=== PATIENT | female | born 1940 | race Caucasian/White ===

== ENCOUNTER 2018-02-19 06:18 | Inpatient (IN) ==
[2018-02-19] MEDS ORDERED: ceFAZolin 2 GM Premix Inj 2 GM/50 ML PIGGYBACK IV.SIG SCH (07:00)
[2018-02-19] MEDS ORDERED: Chlorhexidine 4% Topical 120 APPLIC/120 ML Bottle TOPICAL SCH (07:00)
[2018-02-19] MEDS ORDERED: SODIUM CHLOR 0.9% IV.SIG SCH (07:00)
[2018-02-19] MEDS ORDERED: Vancomycin Inj 1,000 MG in Sodium Chlor 0.9% Inj 250 ML IV.SIG SCH (07:00)
[2018-02-19] MEDS ORDERED: Sodium Chlor 0.9% Inj 60 ML, Bupivacaine Liposo PF 1.3% Inj 20 ML, Bupivacaine/Epi PF 0... P-ARTICULR SCH ×3 (07:00)
[2018-02-19] MEDS ORDERED: TRANEXAMIC ACID IV.SIG SCH (07:00)
[2018-02-19] MEDS ORDERED: Metoprolol Tartrate 25 MG Tablet PO ONE (07:18)
[2018-02-19] MEDS ORDERED: Chlorhexidine Gluconate 2% 1 Pack (2 Cloths) TOPICAL ONE (07:18)
[2018-02-19] MEDS ORDERED: Sodium Chlor 0.9% Inj 500 ML IV.SIG SCH (08:00)
[2018-02-19] MEDS ORDERED: Bisacodyl 10 MG Supp RECTAL PRN (11:34)
[2018-02-19] MEDS ORDERED: Morphine Inj 4 MG/ML Vial IV.PUSH PRN (11:34)
[2018-02-19] MEDS ORDERED: Post-op Orders (for Pharmacy) OTHER STA (11:34)
--- NOTE | 2018-02-19 11:40 | P.OP ---
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 She presents for surgical treatment after having extensive conservative care NOTE: Ely Dorado PA-C was present for the entire surgical procedure as my automobile mechanic assistant. In my medical opinion her skill and care was necessary for the proper management of this patient. COMPONENTS: COMPANY: [employer] CUP: Forrest, 48 mm, sector, 2 screws STEM: [place], size 13, standard offset HEAD: Metal, 32 mm, +1, 03/08 taper LINER: Altrex, 32 mm, neutral PROCEDURE: This patient was brought to the operating room and anesthetized in the supine position. The patient was positioned on the [place] table with the operative leg extended and the contralateral leg held position. The hip and leg was scrubbed with alcohol followed by Hibiclens followed by ChloraPrep and draped sterilely in the clean air suite. Preoperative fluoroscopic images were utilized. A templating x-ray was obtained and printed to be used during the case. A timeout was done and antibiotics were given within a routine time window. A 4 inch incision was made starting 2 cm distal and 2 cm lateral to the anterior superior iliac spine. The tensor fascia lizzeth fascia was identified and opened longitudinally in line with the incision. Deep retraction allowed good visualization in the interval between the tensor fascia lizzeth and the rectus and this was opened further. The posterior fascia was opened. Crossing vessels were coagulated appropriately. The anterior aspect of the hip capsule was identified. Retractors were placed above and below the capsule. The capsule was opened longitudinally. Stay sutures were utilized creating flaps for the anterior capsule. The femoral neck was cut at the right location and completed with an oscillating saw. The head and neck was removed and taken to the back table. The leg was externally rotated 60 degrees and traction placed on the extremity. The labrum was excised. A portion of the capsule was excised. Visibility was excellent. Retractors were positioned. Starting 6 mm from the final size reamer, we began reaming up to 1 mm from the anticipated size. This was visualized under fluoroscopy. A trial cup was positioned. This also was visualized under fluoroscopy and minor adjustments were made. The final preparation with a 48 reamer was utilized. The final cup was positioned in approximately 40 degrees of abduction and 20 degrees of forward flexion. This is visualized under fluoroscopy and was seated into the final position. Position was very satisfactory. 2 screws were positioned without complication A single hole eliminator was positioned followed by the plastic liner. The final solution was excellent. Traction was let off. The leg was brought into neutral rotation. A lifting took was positioned underneath the greater trochanter and proximal femur. The leg was maximally X rotated and the foot drop to the floor across midline. Retractors were positioned. A box osteotome was used to gain entrance into the top of the femur. The canal was probed with a finder to ensure that we are within the canal. Successive broaching up to the final stem size was accomplished. Trial reduction showed excellent balancing. Adjustments were made. The wound was irrigated copiously and the canal irrigated. The final stem was inserted in proper orientation. Trial again was trialed and the final head side was impacted. The hip was reduced and with 60 degrees of external rotation the leg to be dropped to the floor without evidence of anterior subluxation. Intraoperative x-rays were obtained. Local anesthesia was utilized for a field block including posterior capsule, inferior capsule, cephalad capsule, region of the greater trochanter, tensor fascia lizzeth and subcutaneous tissue. The anterior capsule was repaired with interrupted #2 Tycron sutures. The fascia was run with 0 PDS on a loop. Subcutaneous tissue was approximated 2-0 Vicryl suture and skin with running intradermal 3-0 Vicryl followed by benzoin and Steri-Strips. A sterile dressing was applied. The patient was awakened and taken to the recovery room in satisfactory condition FINDINGS: There was severe acetabular dysplasia. Cup position was cephalad from normal with what was felt to be good bone capture and overall satisfactory position. The final solution was satisfactory. We lengthen the leg approximately 11 mm
--- NOTE | 2018-02-19 11:47 | P.DCO ---
- Physical Therapy Physical Therapy: Gait training (3x/week for 2 weeks) Hip: Total hip Right Lower Extremity Weight Bearing: Weight bearing as tolerated - Certification Need for Home Health services: I have seen patient Nalini Flores on 02/19/18. My clinical findings support the need for the requested home health care services because: Homebound Certification: I certify that my clinical findings support that this patient is homebound because:
--- NOTE | 2018-02-19 11:47 | XR ---
EXAM DATE: 02/19/2018 11:45 AM EST AGE/SEX: 77 years / Female INDICATIONS: Post-op total right hip arthroplasty. CLINICAL DATA: This is the patient's initial encounter. Patient reports that signs and symptoms have been present for 1 day and indicates a pain score of Nonresponsive. MEDICAL/SURGICAL HISTORY: Non-responsive. Non-responsive. COMPARISON: No prior exams available for comparison. FINDINGS: Total hip arthroplasty is present. The hardware appears intact. Alignment is anatomic. CONCLUSION: Satisfactory appearance of right RU Electronically signed by: Moe Amaya MD 02/19/2018 11:46 AM EST
[2018-02-19] MEDS ORDERED: *Ondansetron Inj 4 MG/2 ML Vial PERIprocedural Use ONLY ONE (12:08)
[2018-02-19] MEDS ORDERED: fentaNYL Citrate Inj 100 MCG/2 ML Ampul ONE (12:15)
[2018-02-19] MEDS ORDERED: *Promethazine Inj 25 MG/ML Vial PERIprocedural use ONLY ONE (12:20)
[2018-02-19] MEDS ORDERED: *morphine SULFATE 4 MG/ML PERIprocedure ONLY ONE (12:37)
[2018-02-19] MEDS: ceFAZolin 1 GM Premix Inj 1 GM/50 ML FROZ.PIGGY IV.SIG SCH ×2 (15:25→21:11)
[2018-02-19] MEDS ORDERED: Temazepam 15 MG Capsule PO PRN (21:00)
[2018-02-19] MEDS: Senna/Docusate Sodium 8.6/50 MG Tablet PO SCH (21:11)
[2018-02-19] MEDS: Multivitamin/Minerals Therapeutic Tablet PO SCH (21:11)
[2018-02-20] MEDS: ceFAZolin 1 GM Premix Inj 1 GM/50 ML FROZ.PIGGY IV.SIG SCH (04:09)
[2018-02-20 07:03] LABS: Hematocrit 28.9 % (35.0-46.0)
[2018-02-20] MEDS: Multivitamin/Minerals Therapeutic Tablet PO SCH (08:08)
[2018-02-20] MEDS: Senna/Docusate Sodium 8.6/50 MG Tablet PO SCH (08:08)
--- NOTE | 2018-02-20 14:26 | P.PNOP ---
Subjective Interval history: Doing fairly well. Right hip pain is well controlled. She believes she is better than prior to surgery. No radiating leg pain. No CP or abd pain. Physical Exam Vital signs: Vital Signs 02/19/18 16:00 02/19/18 19:42 02/19/18 23:53 Temperature 97.3 F L 97.9 F 97.8 F Pulse Rate 84 77 79 Respiratory Rate 18 18 22 Blood Pressure 126/67 118/55 L 116/58 L Pulse Oximetry 98 98 95 02/20/18 04:00 02/20/18 08:00 Temperature 99.1 F 98.3 F Pulse Rate 82 73 Respiratory Rate 16 17 Blood Pressure 133/61 102/53 L Pulse Oximetry 93 L 94 L Intake & Output 02/19/18 02/20/18 02/20/18 18:59 06:59 18:59 Intake Total 2456.8 / 2456.8 600 / 600 Output Total 300 / 300 Balance 2156.8 / 2156.8 600 / 600 Weight 57.9 kg 59.4 kg Intake: IV 556.8 / 556.8 100 / 100 LR 1000 mL Inj 1,000 ML @ 80 101 / 101 mls/hr IV.CONT .[id number] [facility] Rx# :[id number] Cyklokapron Inj 580 MG In NS 105.8 / 105.8 Inj 100 ML @ 200 mls/hr IV.SIG ONCE [place] Rx#:[id number] Vancomycin Inj 1,000 MG In NS 250 / 250 Inj 250 ML @ 250 mls/hr IV.SIG SOFTWARE RELEASE MANAGER [facility] Rx#:[id number] Ancef 1 GM Premix Inj 1 gm In 50 / 50 100 / 100 50 ml @ 100 mls/hr IV.SIG Q6H [place] Rx#:[id number] Ancef 2 GM Premix Inj 2 gm In 50 / 50 50 ml @ 100 mls/hr IV.SIG SOFTWARE RELEASE MANAGER [place] Rx#:[id number] Oral 500 / 500 500 / 500 Anesthesia Amount 1400 / 1400 Output: Estimated Blood Loss 300 / 300 Other: # Voids 1 5 Date of Last Bowel Movement 02/18/18 02/18/18 Narrative: Laying in bed NAD RLE Hip dressing intact, mild SS drainage middle portion dressing, no erythema , Mild swelling and warmth +motor at, +sens, +nvi Neg homans - Constitutional no acute distress Results - Labs CBC & Chem 7: 02/20/18 05:27 Laboratory Results - last 24 hr 02/20/18 05:27 Hgb 10.0 L Hct 28.9 L - Procedures Right total hip arthroplasty, direct anterior approach Assessment and Plan - Ortho Post Op Day # 1 - Assessment and Plan pod#1 s/p R RU, anterior Doing very well for pod#1. Ortho stable. Pain controlled. Ok to d/c home w [facility] after PT today. PO pain meds as needed. PT - WBAT RLE. Anterior RU precautions. Walker assist. Hold dressing changes unless saturated. ASA 81mg F/U in 2 weeks as scheduled. DME written.
--- NOTE | 2018-02-20 14:26 | P.DS ---
Date of admission: 02/19/18 06:18 Primary care physician: Dario Caraballo MD Attending physician on discharge: Adrian Robertson Anticipated date of discharge: 02/20/18 Brief History from admission: Ms. Flores has a 1 year history of increasing right hip pain. This increased May of 2017 so she sought out medical treatment. Xrays were taken showing mild to moderate arthritis. Physical therapy and diclofenac were prescribed. She was not able to do the therapy at the time but found the medicine to relieve some of her symptoms. In November she underwent intra-articular injection of the right hip. She got little relief and found her pain to accelerate. Repeat xrays were taken showing severe arthritis with collapse of the femoral head. Surgical treatment was recommended in the form of right total hip arthroplasty, direct anterior approach. She agreed and now presents for the above. DS: Diagnosis - Discharge Diagnosis (1) Osteoarthritis of right hip Status: Acute DS: Medications - Discharge Medications Prescriptions: aspirin 81 mg PO BID 30 Days #60 tab hydrocodone-acetaminophen 1 tab PO Q4H PRN #42 tab PRN Reason: Acute Pain DS: Summary Hospital Course: Surgical treatment was performed on the day of admission without complication. She recovered well in PACU and was transferred to the orthopaedic floor. Pain was controlled with IV and oral medications. She was compliant with physical therapy and all precautions. After 1 day she was found to be stable and discharged home with home health care. She was instructed to continue her therapy, to ice the operative limb and to pursue a high fiber diet for 5-7 days. She was given a prescription for [place] and instructed to take ASA 81mg BID for 30 days. - Time Spent with Patient Total time spent providing and/or coordinating discharge services: Greater than 30 minutes - Quality: VTE Deep Vein Thrombosis/Pulmonary Embolism Present on Admission: No Exam Vital signs: Vital Signs 02/19/18 16:00 02/19/18 19:42 02/19/18 23:53 Temperature 97.3 F L 97.9 F 97.8 F Pulse Rate 84 77 79 Respiratory Rate 18 18 22 Blood Pressure 126/67 118/55 L 116/58 L Pulse Oximetry 98 98 95 02/20/18 04:00 02/20/18 08:00 Temperature 99.1 F 98.3 F Pulse Rate 82 73 Respiratory Rate 16 17 Blood Pressure 133/61 102/53 L Pulse Oximetry 93 L 94 L Intake & Output 02/19/18 02/20/18 02/20/18 18:59 06:59 18:59 Intake Total 2456.8 / 2456.8 600 / 600 Output Total 300 / 300 Balance 2156.8 / 2156.8 600 / 600 Weight 57.9 kg 59.4 kg Intake: IV 556.8 / 556.8 100 / 100 LR 1000 mL Inj 1,000 ML @ 80 101 / 101 mls/hr IV.CONT .[id number] [facility] Rx# :[id number] Cyklokapron Inj 580 MG In NS 105.8 / 105.8 Inj 100 ML @ 200 mls/hr IV.SIG ONCE [place] Rx#:[id number] Vancomycin Inj 1,000 MG In NS 250 / 250 Inj 250 ML @ 250 mls/hr IV.SIG SUPREME [facility] JUSTICE [place] Rx#:[id number] Ancef 1 GM Premix Inj 1 gm In 50 / 50 100 / 100 50 ml @ 100 mls/hr IV.SIG Q6H [place] Rx#:[id number] Ancef 2 GM Premix Inj 2 gm In 50 / 50 50 ml @ 100 mls/hr IV.SIG [facility]PREME [facility] JUSTICE [place] Rx#:[id number] Oral 500 / 500 500 / 500 Anesthesia Amount 1400 / 1400 Output: Estimated Blood Loss 300 / 300 Other: # Voids 1 5 Date of Last Bowel Movement 02/18/18 02/18/18 Results Procedures completed during hospitalization: Right total hip arthroplasty, direct anterior approach Labs on day of discharge: Labs from last 24 hours 02/20/18 05:27 Hgb 10.0 L Hct 28.9 L - Impressions ITS Impressions Hip X-Ray 02/19/18 00:00 CONCLUSION: Satisfactory appearance of right RU Discharge Plan - Discharge Disposition Patient Disposition: Disch W/Home Health Service - Discharge Condition Condition: Good - Discharge Order Discharge Orders: Discharge Order (Routine); Ordered 02/20/18 Ordered By: Adrian Robertson - Discharge Details Anticipated Discharge Date: 02/20/18 - Physicians Team Primary Care Provider: Dario Caraballo Attending Provider: Adrian Robertson Other Providers: [facility]ency - Rxs /Orders / Referrals /Forms Prescriptions: New aspirin 81 mg Tablet,Chewable 81 mg PO BID 30 Days Qty: 60 RF: 0 hydrocodone-acetaminophen 7.5-325 mg Tablet 1 tab PO Q4H PRN (Reason: Acute Pain) Qty: 42 RF: 0 Continue betamethasone valerate 0.1 % Cream 1 applic TOPICAL DAILY calcium carbonate [Calcium 600] 600 mg calcium (1,500 mg) Tablet 600 mg PO BID diclofenac sodium 75 mg Tablet,Delayed Release (Dr/Ec) 75 mg PO BID omeprazole 40 mg Capsule,Delayed Release(Dr/Ec) 40 mg PO DAILY triamcinolone acetonide 0.1 % Cream 1 applic TOPICAL DAILY Ambulatory Orders / Order Sets / DME: Adjustable Commode 3-in-1 (1 each) (Routine) Location: Determined by Patient Ordered By: Adrian Robertson Walker With Front Wheels (1 each) (Routine) Location: Determined by Patient Ordered By: Adrian Robertson Referrals: Dario Caraballo MD [Primary Care Provider] - See Instructions - Discharge Instructions Patient Printed Instructions: Hydrocodone/Acetaminophen (By mouth), Aspirin ( By mouth), How to Use an Incentive Spirometer (DC), How to Choose and Use a Walker (GEN), SEAMUS Hose (DC), Total Hip Replacement (DC) Additional Instructions: Full weight bearing Follow up with Dr Robertson as directed - Post Discharge Care Plan Care Plan Goals: Discharge Care Plan Goals for Total Hip Replacement You had a hip replacement surgery. This means your natural hip was replaced with an artificial joint (prosthesis). You may be recovering at home or in a rehabilitation facility. Either way, you must take care of your new hip. Here are some goals to help you heal well. Directions to Meet your Goals: 1. Activity & Exercises: * Take pain medicine as directed by your doctor. * Dont drive until your doctor says its OK. And never drive while taking opioid pain medicine. * Wear the support stockings you were given in the hospital as directed by your surgeon. * Dont sit for more than 30 to 45 minutes at one time. * Dont lean forward while sitting. * Dont cross your legs. * Keep your feet flat on the floor. Dont turn your foot or leg inward. This stresses your hip joint. * Use an elevated toilet seat for 6 weeks after surgery. * Nap if you are tired, but dont stay in bed all day. * Sit on a firm cushion when you ride in a car and avoid sitting too low. Try not to bend your hip too much when getting in and out of the car. 2. Prevent Falls/Injury: * Follow your doctors orders regarding how much weight to put on the affected leg. * Dont bend at the hip when you bend over. Don't bend at the waist to put on socks and shoes. And avoid picking up items from the floor. * Use a cane, crutches, a walker, or handrails until your balance, flexibility, and strength improve. And remember to ask for help from others when you need it. * Free up your hands so that you can use them to keep balance. Use a omaira pack , apron, or pockets to carry things. * Arrange your household to keep the items you need handy. Keep everything else out of the way. * Remove items that may cause you to fall, such as throw rugs and electrical cords. * Use nonslip bath mats, grab bars, an elevated toilet seat, and a shower chair in your bathroom * Sit on a shower stool or chair when you shower to keep from falling. 3. Precautions: * Prevent infection. Any infection will need to be treated immediately. Call your doctor right away if you think you might have an infection. * Tell your dentist that you have an artificial joint and take antibiotics as prescribed before any dental work. * Tell all your healthcare providers about your artificial joint before any medical procedure. * Maintain a healthy weight. Get help to lose any extra pounds. Added body weight puts stress on the joints. 4. Incision Care: * Prevent infection by washing your hands often. If an infection occurs, it will need to be treated right away. * Call your doctor right away if you think you may have an infection. Symptoms include a fever or an incision that leaks white, green, or yellow fluid. * Don't soak your incision in water until your doctor says its OK. This means no hot tubs, bathtubs, or swimming pools. * Follow your doctor's instructions for changing the dressing. * Dont rub the incision, or apply creams or lotions to it. * If you notice any redness or drainage around the bandage site, contact your surgeon's office immediately. 5. Follow-Up: Do Not miss your follow-up appointment. Keep up with all your appointments and yearly check ups When to call your doctor: Call your doctor right away if you have: Hip pain gets worse Pain or swelling in your calf or leg not related to your incision Tenderness or redness in your calf Fever of 100.4F (38C) or higher, or as directed by your healthcare provider Shaking chills Swelling or redness at the incision site gets worse Fluid draining from the incision Call 911: Call 911 right away if you have: Chest pain Shortness of breath Any pain or tenderness in your calf
== END 2018-02-20 14:13 | disposition home health service (06) ==
LOC: HSDI 06:18 → N06 14:20
PROVIDERS: ADMIT Orthopaedic Surgery Orthopaedic Surgery of the Spine; ATTEND Orthopaedic Surgery Orthopaedic Surgery of the Spine